=== PATIENT | female | born 2005 | race Caucasian/White ===

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

== ENCOUNTER → 2023-01-08 | Outpatient (REF) | payer OTHER, MEDICAID ==
[~2023-01-08] MED LIST changes: +HYDR-3363 PO
[2023-01-08 14:12] LABS: GC DNA AMPLIFICATION NEGATIVE (NEGATIVE)
[2023-01-08 17:18] LABS: HCG, SERUM QUANTITATIVE < 2.6 MIU/ML (<4.2)
[2023-01-08 17:48] LABS: HIV 1&2 SCREEN NEGATIVE (NEGATIVE)
[2023-01-08 17:54] LABS: HEPATITIS C VIRUS ABY INDEX 0.16 INDEX (<0.8)
== END ==
LOC: M LAB REF 11:25
PROVIDERS: ATTEND Nurse Practitioner Family
DX: Z11.3 Encounter for screening for infections with a predominantly sexual mode of transmission (principal)

== ENCOUNTER 2024-01-02 06:13 | Emergency (ER) | payer MEDICAID, OTHER ==
[~2024-01-02] VITALS: Ht 160 cm; Wt 60.4 kg
[~2024-01-02 06:13] MED LIST changes: +ONDA-282 PO; -ONDA4TAB6 PO
[2024-01-02 09:32] LABS: BASO % 0.5 % (0.0-1.0); EOS % 0.1 % (0.0-3.0); HEMATOCRIT 41.8 % (36.0-47.0); HEMOGLOBIN 14.8 g/dl (12.0-15.5); LYMPH # 1.1 10^3/uL (1.5-5.0); LYMPH % 13.1 % (24.0-44.0); MEAN CORPUSCULAR HEMOGLOBIN 34.3 pg (27.0-33.0); MEAN CORPUSCULAR HGB CONC 35.4 g/dl (32.0-36.5); MONO # 0.6 10^3/uL (0.0-0.8); MONO % 7.2 % (2.0-8.0); NEUTROPHILS # 6.6 10^3/uL (1.5-8.5); NEUTROPHILS % 78.7 % (36.0-66.0); PLATELET COUNT, AUTOMATED 253 10^3/uL (150-450); RED BLOOD COUNT 4.31 10^6/uL (4.00-5.40); WHITE BLOOD COUNT 8.3 10^3/uL (4.0-10.0)
[2024-01-02 09:54] LABS: HCG, SERUM QUALITATIVE NEGATIVE (NEGATIVE)
[2024-01-02 09:56] LABS: ALBUMIN 4.5 G/DL (3.2-5.2); ALKALINE PHOSPHATASE 57 U/L (46-116); ALT/SGPT 31 U/L (7.0-40); AST/SGOT 32 U/L (<34); BILIRUBIN,TOTAL 1.1 MG/DL (0.3-1.2); BLOOD UREA NITROGEN 6 MG/DL (9-23); CALCIUM LEVEL 9.8 MG/DL (8.5-10.1); CARBON DIOXIDE LEVEL 25 MMOL/L (20-31); CHLORIDE LEVEL 103 MMOL/L (98-107); CK-MB VALUE MASS < 1.0 NG/ML (<3.6); CREATININE FOR GFR 0.66 MG/DL (0.55-1.30); GLUCOSE, FASTING 92 MG/DL (60-100); POTASSIUM SERUM 3.5 MMOL/L (3.5-5.1); SODIUM LEVEL 136 MMOL/L (136-145); TOTAL PROTEIN 7.9 G/DL (5.7-8.2)
[2024-01-02 09:57] LABS: THYROXINE (T4) 5.7 UG/DL (5.5-11.1)
[2024-01-02 09:58] LABS: FREE THYROXINE INDEX 2.3 % (1.3-4.8); T UPTAKE 39.6 % (22.5-37.0)
[2024-01-02 10:22] LABS: CPK CREATINE PHOSPHOKINASE 27 U/L (34-145)
[2024-01-02 11:09] LABS: AMPHETAMINES LEVEL URINE NEGATIVE (NEGATIVE); BARBITURATES URINE NEGATIVE (NEGATIVE); BENZODIAZEPINES URINE NEGATIVE (NEGATIVE); COCAINE METABOLITE URINE NEGATIVE (NEGATIVE); METHADONE URINE NEGATIVE (NEGATIVE); OPIATES URINE NEGATIVE (NEGATIVE); PHENCYCLIDINE URINE NEGATIVE (NEGATIVE)
[2024-01-02 11:17] LABS: CANNABINOIDS URINE POSITIVE (NEGATIVE)
[2024-01-02] MEDS ORDERED: HYDR1CRE30 TOP (11:27)
[2024-01-02] MEDS ORDERED: BACT800T5 PO (11:27)
[2024-01-02 12:31] LABS: GC DNA AMPLIFICATION NEGATIVE (NEGATIVE)
[2024-01-02 12:51] VITALS: BP 125/78; TEMP 98.1; O2SAT 100
[2024-01-03] MEDS ORDERED: HYDR-3363 PO (12:36)
== END 2024-01-02 13:03 | disposition home or self-care (01) ==
LOC: M ED 06:13
DX: F41.1 Generalized anxiety disorder (principal); R21 Rash and other nonspecific skin eruption; F12.10 Cannabis abuse, uncomplicated

== ENCOUNTER 2024-01-03 10:41 | Emergency (ER) | payer MEDICAID ==
[~2024-01-03] VITALS: Ht 160 cm; Wt 59.4 kg
[~2024-01-03 10:41] MED LIST changes: +BACT800T5 PO; +HYDR1CRE30 TOP
[2024-01-03] MEDS ORDERED: HYDR-3363 PO (12:36)
[2024-01-03 13:25] VITALS: BP 145/86; TEMP 97.9; O2SAT 98
== END 2024-01-03 13:26 | disposition home or self-care (01) ==
LOC: M ED 10:41
DX: F41.1 Generalized anxiety disorder (principal); Z79.3 Long term (current) use of hormonal contraceptives

== ENCOUNTER → 2024-01-17 | Outpatient (REF) | payer OTHER | LOC: M LAB REF 16:10 | PROVIDERS: ATTEND Nurse Practitioner Family | DX: R30.0 Dysuria (principal) ==

== ENCOUNTER → 2024-04-14 | Outpatient (REF) | payer MEDICAID, OTHER ==
[2024-04-14 18:53] LABS: CHOLESTEROL RISK RATIO 3.46 (<5); LDL CHOLESTEROL 114.6 MG/DL (<100)
== END ==
LOC: M LAB REF 16:37
PROVIDERS: ATTEND Nurse Practitioner Family
DX: Z13.220 Encounter for screening for lipoid disorders (principal)